=== PATIENT | female | born 1980 | race Two or more races ===

== ENCOUNTER 2019-02-27 22:41 | Emergency (ER) | payer SELFPAY ==
[~2019-02-27] VITALS: Ht 165.1 cm; Wt 77.0 kg
[2019-02-28] MEDS ORDERED: ONDANSETRON 4MG ODT PO NR
[2019-02-28] MEDS ORDERED: IBUPROFEN 600MG TABLET PO NR
[2019-02-28 00:51] LABS: *BARBITURATES SCREEN URINE NEGATIVE (NEGATIVE); *COCAINE SCREEN URINE NEGATIVE (NEGATIVE)
[2019-02-28 00:52] LABS: *BENZODIAZEPINES SCREEN URINE NEGATIVE (NEGATIVE); CANNABINOID URINE SCREEN NEGATIVE (NEGATIVE); METHADONE URINE SCREEN NEGATIVE (NEGATIVE); PHENCYCLIDINE URINE SCREEN NEGATIVE (NEGATIVE)
[2019-02-28 01:01] LABS: *AMPHETAMINES SCREEN URINE PRESUMTIVE POSITIVE (NEGATIVE); OPIATES URINE SCREEN PRESUMTIVE POSITIVE (NEGATIVE)
[2019-02-28 01:54] VITALS: BP 182/121
== END 2019-02-28 01:59 | disposition home or self-care (01) ==
LOC: ER 22:41
DX: F19.10 Other psychoactive substance abuse, uncomplicated (principal); R11.2 Nausea with vomiting, unspecified; M54.9 Dorsalgia, unspecified; Z02.89 Encounter for other administrative examinations
CPT/HCPCS: 36415; 80305; 80320; 81025; 99283; Q0162; G0480